=== PATIENT | female | born 1990 | race Caucasian/White ===

== ENCOUNTER 2019-05-16 06:33 | Inpatient (IN) ==
[2019-05-16] MEDS ORDERED: Famotidine 20 MG/2 ML VIAL IVP PRN (06:53)
[2019-05-16] MEDS ORDERED: *HR* Nalbuphine 10 MG/ML AMPUL IVP PRN (06:53)
[2019-05-16] MEDS ORDERED: Naloxone 0.4 MG/ML INJ IVP PRN (06:53)
[2019-05-16] MEDS ORDERED: Metoclopramide 10 MG/2 ML VIAL IVP PRN ×2 (06:53→11:23)
[2019-05-16] MEDS ORDERED: CeFAZolin Premix DUPLEX 2,000 MG/50 ML BAG IVPB ONE (06:53)
--- NOTE | 2019-05-16 06:56 | Event Note ---
Date of Encounter: 05/16/19 Time of Encounter: 06:55 Called to see patient at bedside to confirm patient head down, Ilana (Charge, RN) was unable to palpate presenting part. Did appreciate bag with no presenting part. Measuring ~6cm. She is comfortable. Consent was signed at bedside following US. MD VANESA
[2019-05-16] MEDS ORDERED: Ringers Solution, Lactated 1,000 ML IVC SCH (07:00)
[2019-05-16] MEDS ORDERED: Ringers Solution, Lactated 1,000 ML ONE ×2 (07:03→16:20)
--- NOTE | 2019-05-16 07:09 | OB/GYN History & Physical ---
Date of Encounter: 05/16/19 Time of Encounter: 07:04 Assessment and Plan (1) 40 weeks gestation of Current visit: Yes Status: Acute 28yo at 40+1wks GA who presents with concern for labor, uncomplicated otherwise. Patient presnted feeling contractions but without vaginal bleeding or leaking of fluid. Active movement. She was planning for an uncomplicated vaginal delivery, as her prior 2 were . Unfortunately while the patient was being examined, she was found to be 6cm dilated (stretched to 7cm), without a presenting part. Patient was intact. TAUS was performed by me at bedside, showing a deloris breech . Adequate fluid and movement. Consent was signed for a primary low transverse delivery. We discussed risks including but not limited to bleeding, infection, and maternal morbidity and mortality. Consent was signed with at bedside. Anesthesia was contacted and plans to have a primary CS as soon as patient labs return, which were sent down emergently. All question(s) and concerns were discussed with the patient. Dr. Holguin (on- coming OBGYN) was contacted and all information above was discussed with her in preparation of surgical delivery. MD VANESA History of Present Illness Chief complaint: Labor HPI: Ms. Davila is a 28 year old female who presents with concern for labor, this is her 3rd . Patient is UTD with care from midwives. Came in [place] she was having increased lower abdominal pressure and feelings of contraction(s). Denies n/v/d. Otherwise comfortable. Denies VB/LOF. Active movement. SVE performed at bedside, finding a vaginal exam consistent with 6-7cm with no presenting part. A TAUS was performed at the bedside showing deloris breech. The patient was consented at the bedside, and all risks were discussed. FOB at bedside. Past Med Surg Social Fam HX - Past Medical History Medical history: no medical history Psychiatric history: no psych history - Past Surgical History Surgical History: other Additional surgical history: Shoulder surgery 2006 - Social History Smoking Status: Never smoker Smokeless Tobacco Status: No Alcohol use: none Drug use: none Obstetrical History - Pregnancies : 4 Para: 2 Term: 2 : 0 Ab's: 1 Livin Medications and Allergies Vits96/Iron Fum/Folic [ Tablet] 1 each PO DAILY 05/16/19 [History] Allergy/AdvReac Type Severity Reaction Status Date / Time No Known Allergies Allergy Verified 05/16/19 06:37 Exam - Constitutional Constitutional: well developed, well nourished, no acute distress - HEENT HEENT: Normocephaly, Mucus Membranes Moist - Neck Neck exam: full ROM - Lungs Respiratory exam: CTAB - Cardiovascular Cardiovascular exam: RRR - Breasts Breast: bilateral: normal - Abdomen Abdomen: Present: bowel sounds normal - Cervix Dilation: 6 - Uterus Uterus exam: Present: normal size, normal contour - Anus/Rectum Anus/Rectum: Present: normal perianal skin, heme negative Results All other labs normal.
[2019-05-16] MEDS ORDERED: *HR* Morphine Sulfate/PF 10 MG/10 ML AMPUL ONE (07:13)
[2019-05-16] MEDS ORDERED: *HR* Oxytocin 10 UNIT/ML VIAL IM ONE (07:13)
[2019-05-16] MEDS ORDERED: *HR* FentaNYL (PF) 100 MCG/2 ML VIAL ONE (07:13)
[2019-05-16 07:25] LABS: Basophils % 0.2 %; Eosinophils # 0.1 K/mcL (0.0-0.6); Eosinophils % 1.1 %; Hematocrit 38.8 % (35.3-44.9); Hemoglobin 13.1 g/dL (11.5-15.4); Immature Granulocytes % 0.6 % (0-4); Lymphocytes # 2.3 K/mcL (0.6-4.6); Lymphocytes % 22.2 %; Mean Corpuscular HGB Conc 33.8 g/dL (31.6-35.5); Mean Corpuscular Hemoglobin 31.2 pg (28.0-33.3); Mean Corpuscular Volume 92.4 fL (83.0-100.0); Mean Platelet Volume 12.3 fL (9.4-12.4); Monocytes # 0.5 K/mcL (0.0-1.3); Monocytes % 5.1 %; Neutrophils # 7.3 K/mcL (1.6-8.9); Platelet Count 168 K/mcL (140-400); Red Cell Distribution Width 14.7 % (11.5-14.5); Segmented Neutrophils % 70.8 %; White Blood Count 10.3 K/mcL (4.3-11.1)
[2019-05-16] MEDS ORDERED: Ondansetron 4 MG/2 ML VIAL IVP PRN ×2 (07:51→11:23)
[2019-05-16] MEDS ORDERED: *HR* Meperidine 25 MG/ML SYRINGE IVP PRN (07:51)
[2019-05-16] MEDS ORDERED: Acetaminophen IV 1,000 MG/100 ML INFUS..BTL IVPB ONE (07:51)
[2019-05-16] MEDS ORDERED: *HR* HYDROmorphone (PF) 1 MG/ML SYRINGE IVP PRN (07:51)
--- NOTE | 2019-05-16 07:51 | Anesthesia Evaluation PreOp ---
Date of Encounter: 05/16/19 Time of Encounter: 07:48 - Past History Planned Operation: c section Cardiac History: Denies any Significant Hx Pulmonary History: Denies Any Significant HX AIRCRAFT ASSEMBLER History: Denies Any Significant HX Other Medical History: GERD Anesthesia History: No Prior Anesthetic Complications, Past Anesthesia (shoulder, PRATEEK x 2) : Yes Test: Positive Alcohol Use: none Drug use: none Medications and Allergies Vits96/Iron Fum/Folic [ Tablet] 1 each PO DAILY 05/16/19 [History] Allergy/AdvReac Type Severity Reaction Status Date / Time No Known Allergies Allergy Verified 05/16/19 06:37 - Meds/Allergy Pre-op Review Medications Reviewed: Yes Allergies Reviewed: Yes Beta Blockers on Current Med List: No Anesthesia Results - Labs 05/16/19 06:55 Anesthesia Exam Height: 5'5" Weight: 184 NPO (# of Hours): 12 Pain Scale: 5 Pain Scale Used: Numeric (1 - 10) - HEENT Pupil (Motor): Pupils equal Mallampati: II Teeth: Normal Oral Opening: Greater than 3 - AIRCRAFT ASSEMBLER LOC: Oriented AIRCRAFT ASSEMBLER Motor: Normal RUE, Normal LUE, Normal RLE, Normal LLE, Normal Face AIRCRAFT ASSEM[employer]ER Sensory: Normal: RUE, LUE, RLE, LLE, Face - Cardiac Rhythm: Regular Murmur: None - Pulmonary Breath Sounds: bilateral Clear Respiratory Effort: Symmetrical Anesthesia Assess/Plan ASA Score: 2 Level of consciousness: Cooperative Anesthetic Plan: Spinal (risks discussed, questions answered, consented) Autologous Blood: No Monitoring Plan: Standard Monitors Recovery Plan: PACU
[2019-05-16 08:31] LABS: Amphetamine Screen,Urine Negative ng/mL (Cutoff=1000); Barbiturate Screen,Urine Negative ng/mL (Cutoff=200); Benzodiazepines Screen,Urine Negative ng/mL (Cutoff=200); Cannabinoid Screen,Urine Negative ng/mL (Cutoff = 50); Cocaine Screen,Urine Negative ng/mL (Cutoff= 300); Opiate Screen,Urine Negative ng/mL (Cutoff=300); Phencyclidine Screen,Urine Negative ng/mL (Cutoff=25)
--- NOTE | 2019-05-16 08:37 | Anesthesia Procedures ---
Date of Encounter: 05/16/19 Time of Encounter: 08:35 Procedures: Anesthesia - Epidural/Spinal Patient ID/Chart reviewed: Yes Patient examined: Yes OB Eval: Gestational age: 40 OB Eval: : 3 OB Eval: Hx Para: 2 OB Eval: Dilated at (cm): 6 OB Eval: Contractions: Non-stressed pattern Consent Obtained: Yes Supplemental Oxygen: None/Room Air Supplemental Oxygen Rate (L/min): 3 Site Prep: Aseptic Technique, Sterile prep and drape, 0.5% Chlorhexidine/Alcohol Patient position: upright Local Anesthetic: Lidocaine 1% (3) Amount of Local Anesthetic used: 3 Interspace Used: L2-L3 Loss of Resistance (MARK): No Blood: No CSF: Yes (clear 4 quads) Paresthesia: No Spinal Needle Gauge: 25 Spinal Dose: Marcaine 12mg, duramorph 0.25 mg, fentanyl 10mcg Procedure: aseptic, rigoberto well, VSS, effective Vitals + FHT's: 125/65 76 16 fht 132
--- NOTE | 2019-05-16 09:19 | OB/GYN Procedure Note ---
Section - Date of procedure: 05/16/19 Preop diagnosis: breech Post-op diagnosis: same Procedure: section, primary low transverse Surgeon: Misty Forrest Blood Loss: 400 Was there an computer assistant present: Yes Whizzer: Cassidy Munoz Mortar Mixer: Thomas Smith Anesthesia Type: Spinal section complications: none Disposition: L&D Recovery Room Specimens: Cord blood - Infant (s) Infant A Delivery Date: 05/16/19 Delivery Time: 09:18 Presentation: complete breech Route of delivery: breech extraction (via ) Gender: Female Viability: Viable Pounds: 7 Ounces: 1 Gram Weight: 3.215 kg at 1 minute: 7 at 5 minutes: 9 Shoulder Dystocia: not encountered Specimens collected: cord blood Placenta: spontaneous Cord: nuchal cord, 3 umbilical vessels - Narrative Narrative: Patient was taken to the operative suite and placed under spinal anesthetic. She was then prepped and draped in normal sterile fashion in the dorsal supine position. Timeout was then performed. Antibiotics were given at room time. SCDs are on and active. Pfannenstiel skin incision is then made and carried through to underlying layer of fascia with the Bovie. The fascia was then incised in the midline and incision extended laterally with the Nolasco scissors. The fascia was tented up and dissected off the rectus muscles sharply. The rectus muscles were in the midline and the peritoneum was tented up and entered sharply with the Metzenbaum scissors. The peritoneal incision was then extended bluntly. The bladder blade was then inserted and the vesicouterine peritoneum was entered sharply. Bladder flap was created digitally. A low transverse uterine incision was then made. The breech was brought to the incision and the infant was delivered using breech maneuvers. There was a nuchal cord that was reduced at delivery. Cord was clamped and cut. was handed to waiting nursery staff. Placenta delivered spontaneously complete and intact with a three-vessel cord. The uterus was cleared of all clots and debris using moist laparotomy sponge. The uterine incision was then closed using 0 Vicryl in a running locked fashion. A second layer of the same suture was used to imbricate the incision. Multiple figure of eight sutures were used in the midline to ensure hemostasis. The abdomen was then cleared of all clots and debris using copious irrigation. The fascial incision was then closed using 0 Vicryl in a running fashion. The skin was closed using 4-0 Vicryl in a subcuticular fashion. Steri-Strips and sterile dressing are then placed. Mother and taken to recovery in stable condition.
--- NOTE | 2019-05-16 11:00 | Anesthesia Evaluation Post Op ---
Date of Encounter: 05/16/19 Time of Encounter: 10:58 - Lungs Lungs: Clear Ascult./Percussion - Airway Airway: Non-obstructed - Cardiovascular Regular Rate - Mental Status Mental Status: Alert & Oriented, Answers Appropriately - Pain Pain Scale: 1 (slight itching) Pain Scale used: Numeric (1 - 10) - Nausea Vomiting Nausea Vomiting: Not Present - Hydration Hydration: NPO, Carlos catheter - Discharge PostOp Status: Transfer Patient to floor (fully awake, VSS, no anesthetic complications)
[2019-05-16] MEDS ORDERED: Rho Immune Globulin 1,500 UNIT SYRINGE IM ONE (11:23)
[2019-05-16] MEDS ORDERED: *HR* OxyCODONE Immed Rel 5 MG TABLET PO PRN (11:23)
[2019-05-16] MEDS ORDERED: *HR* OxyCODONE/APAP 5/325 TABLET PO PRN (11:23)
[2019-05-16] MEDS ORDERED: Acetaminophen 325 MG TABLET PO PRN (11:23)
[2019-05-16] MEDS ORDERED: Sennosides 8.6 MG TABLET PO PRN (11:23)
[2019-05-16] MEDS ORDERED: Simethicone 80 MG TAB.CHEW PO PRN (11:23)
[2019-05-16] MEDS ORDERED: Oxytocin 20 units/ LR 1000 mL 20 UNIT/1,000 ML BAG IVC SCH ×2 (11:23)
--- NOTE | 2019-05-17 09:24 | OB/GYN Progress Note ---
Date of Encounter: 05/17/19 Time of Encounter: 09:20 - Assessment and Plan (1) delivery indicated due to breech presentation Current Visit: Yes Status: Acute Patient meeting postop day 1 milestones. Await passage of flatus. Anticipate discharge home postop day 2. (2) () Current Visit: Yes Status: Acute Subjective - Subjective Patient reports: appetite normal (reports not passing gas yet), voiding normally, pain well controlled, ambulating normally : nursing well Objective - Vital Signs Latest vital signs: Vital Signs Temp Pulse Resp BP Pulse Ox 05/17/19 08:39 98.1 F 86 16 113/76 98 05/17/19 04:05 98.2 F 85 18 112/74 99 05/17/19 00:30 99.1 F 72 16 111/72 99 05/16/19 20:25 98.1 F 70 15 125/80 100 05/16/19 14:19 98.4 F 72 18 121/62 96 05/16/19 13:35 97.6 F 73 16 119/76 96 05/16/19 12:30 97.8 F 72 18 120/73 95 05/16/19 12:03 97.9 F 86 14 116/72 98 05/16/19 11:30 98.4 F 88 12 116/71 96 Intake and Output 05/16/19 05/17/19 05/17/19 23:59 07:59 15:59 Intake Total 1200 / 1200 Output Total 1003 / 1603 2200 / 2200 Balance -1003 / -1503 -1000 / -1000 Intake: Oral 1200 / 1200 Output: Urine 500 / 500 Emesis 3 / 3 Catheter 1000 / 1600 1700 / 1700 Other: Weight 78.925 kg Patient Weight 05/17/19 23:59 Weight 78.925 kg - Exam Lungs: bilateral: normal Chest: Normal S1, Normal S2 Extremities: Present: normal Abdomen: Present: soft (BS x 2 UQ's), gravid Incision: Present: dry, intact Uterus: Present: firm Fundal Height: 1 (U/1) - Labs Labs: Laboratory Results - last 24 hr 05/16/19 09:25 Baby's Blood Type O RH NEGATIVE Mother's Blood Type O RH NEGATIVE Rhogam Indicated NO
[2019-05-17 09:33] LABS: Basophils % 0.2 %; Eosinophils # 0.1 K/mcL (0.0-0.6); Eosinophils % 0.9 %; Hematocrit 36.8 % (35.3-44.9); Hemoglobin 11.9 g/dL (11.5-15.4); Immature Granulocytes % 0.4 % (0-4); Lymphocytes # 1.6 K/mcL (0.6-4.6); Lymphocytes % 13.7 %; Mean Corpuscular HGB Conc 32.3 g/dL (31.6-35.5); Mean Corpuscular Hemoglobin 30.9 pg (28.0-33.3); Mean Corpuscular Volume 95.6 fL (83.0-100.0); Mean Platelet Volume 11.7 fL (9.4-12.4); Monocytes # 0.5 K/mcL (0.0-1.3); Monocytes % 4.4 %; Neutrophils # 9.1 K/mcL (1.6-8.9); Platelet Count 154 K/mcL (140-400); Red Blood Count 3.85 M/mcL (3.82-4.97); Segmented Neutrophils % 80.4 %; White Blood Count 11.3 K/mcL (4.3-11.1)
[2019-05-17] MEDS: Ibuprofen 600 MG TABLET PO PRN ×2 (11:08→19:46)
[2019-05-17] MEDS: Prenatal Vit/FA 1 EACH TABLET PO SCH (11:12)
[2019-05-18] MEDS: Ibuprofen 600 MG TABLET PO PRN (05:45)
[2019-05-18 08:15] VITALS: BP 122/87
[2019-05-18] MEDS: Prenatal Vit/FA 1 EACH TABLET PO SCH (08:55)
--- NOTE | 2019-05-18 09:34 | Discharge Summary ---
Date of Encounter: 05/18/19 Time of Encounter: 09:39 - Discharge Diagnosis (1) S/P section Priority: Primary Status: Acute Comments: 28 y/o F POD 2 s/p primary C/S for breech presentation reports recovering well . She is able to tolerate regular diet with flatus but denied BM as of yet. Denies dysuria. Reports minimal vaginal bleeding and wound site clean. Breast feeding going weel . No new complaints. Vitals reviewed. No events overnight. (2) Breast feeding status of mother Priority: Secondary Status: Acute Comments: Breast feeding going well but need breast pump at home - support as needed (3) Positive GBS test Priority: Secondary Status: Acute Comments: GBS positive treated with PCN x2 in delivery (4) Leukocytosis Priority: Secondary Status: Acute Comments: Mild leukocytosis at WBC 11.3 with out fever or concerning symptoms thus etiology likely reactive Qualifiers: Leukocytosis type: unspecified Qualified Code(s): D72.829 - Elevated white blood cell count, unspecified - Discharge Medications Prescriptions: New Docusate [Colace] 100 mg PO BID #60 capsule Ibuprofen [Motrin] 600 mg PO Q6HR #60 tablet OxyCODONE/APAP 5/325 [Percocet 5/325 MG] 1 each PO Q4HR PRN 3 Days #14 tablet PRN Reason: Moderate pain 4-6 Breast Pump [BREAST PUMP] 1 each .ROUTE AD #1 each Continued Vits96/Iron Fum/Folic [ Tablet] 1 each PO DAILY Home Medications: Vits96/Iron Fum/Folic [ Tablet] 1 each PO DAILY 05/16/19 [History] Breast Pump [BREAST PUMP] 1 each .ROUTE AD #1 each 05/18/19 [Rx] Docusate [Colace] 100 mg PO BID #60 capsule 05/18/19 [Rx] Ibuprofen [Motrin] 600 mg PO Q6HR #60 tablet 05/18/19 [Rx] OxyCODONE/APAP 5/325 [Percocet 5/325 MG] 1 each PO Q4HR PRN 3 Days #14 tablet 05/18/19 [Rx] Allergies/Adverse Reactions: Allergy/AdvReac Type Severity Reaction Status Date / Time No Known Allergies Allergy Verified 05/16/19 06:37 Data Procedures and tests throughout hospitalization: Laboratory Tests 06/05/16/19 05/16/19 06:53 06:55 09:25 WBC 10.3 RBC 4.20 Hgb 13.1 Hct 38.8 MCV 92.4 MCH 31.2 MCHC 33.8 RDW 14.7 H Plt Count 168 MPV 12.3 Immature Gran % 0.6 Seg Neutrophils % 70.8 Lymphocytes % 22.2 Monocytes % 5.1 Eosinophils % 1.1 Basophils % 0.2 Neutrophils # 7.3 Lymphocytes # 2.3 Monocytes # 0.5 Eosinophils # 0.1 Basophils # 0.0 Urine Opiates Screen Negative Ur Barbiturates Screen Negative Ur Phencyclidine Scrn Negative Ur Amphetamines Screen Negative U Benzodiazepines Scrn Negative Urine Cocaine Screen Negative U Marijuana (THC) Screen Negative Ur Drug Screen Interp See Below Baby's Blood Type O RH NEGATIVE Mother's Blood Type O RH NEGATIVE Rhogam Indicated NO 05/17/19 09:05 WBC 11.3 H RBC 3.85 Hgb 11.9 Hct 36.8 MCV 95.6 MCH 30.9 MCHC 32.3 RDW 15.0 H Plt Count 154 MPV 11.7 Immature Gran % 0.4 Seg Neutrophils % 80.4 Lymphocytes % 13.7 Monocytes % 4.4 Eosinophils % 0.9 Basophils % 0.2 Neutrophils # 9.1 H Lymphocytes # 1.6 Monocytes # 0.5 Eosinophils # 0.1 Basophils # 0.0 Urine Opiates Screen Ur Barbiturates Screen Ur Phencyclidine Scrn Ur Amphetamines Screen U Benzodiazepines Scrn Urine Cocaine Screen U Marijuana (THC) Screen Ur Drug Screen Interp Baby's Blood Type Mother's Blood Type Rhogam Indicated Labs on day of discharge: Labs from last 24 hours 05/17/19 09:05 WBC 11.3 H RBC 3.85 Hgb 11.9 Hct 36.8 MCV 95.6 MCH 30.9 MCHC 32.3 RDW 15.0 H Plt Count 154 MPV 11.7 Immature Gran % 0.4 Seg Neutrophils % 80.4 Lymphocytes % 13.7 Monocytes % 4.4 Eosinophils % 0.9 Basophils % 0.2 Neutrophils # 9.1 H Lymphocytes # 1.6 Monocytes # 0.5 Eosinophils # 0.1 Basophils # 0.0 Date of admission: 05/16/19 06:33 Primary care physician: PCP NONE Discharging clinician: Sissy M Ramana Anticipated date of discharge: 05/18/19 - Patient Status Disposition: Home, Self-Care Condition: Good Functional capacity at discharge: independent ambulation Overall status at discharge: patient is progressing back to baseline - Discharge Instructions Follow Up With: NONE,PCP [Primary Care Provider] - Misty Holguin DO [Partnered Physician] - - Diet and Activity Activity: increase activity as tolerated Diet: advance to your usual diet Hospital Course Reason for admission: active labor (breech presentation) Delivery: section Episiotomy: none Laceration: none Other procedures: none complications: none Discharge diagnosis: IUP at term delivered [place] baby: female Hospital course: Addendum entered and electronically signed by Misty Holguin DO 05/16/19 10:36: Delivery time was entered in error in above note. The actual time was 0828 on 05/16/2019 Original Note: Section - Date of procedure: 05/16/19 Preop diagnosis: breech Post-op diagnosis: same Procedure: section, primary low transverse Surgeon: Misty Holguin Quantitated Blood Loss: 400 Was there an engineer first assistant present: Yes Materials Analyst: Cassidy Munoz Blister Rust Eradicator: Thomas Smith Anesthesia Type: Spinal section complications: none Disposition: L&D Recovery Room Specimens: Cord blood - (s) Infant A Infant Delivery Date: 05/16/19 Infant Delivery Time: 09:18 Presentation: complete breech Route of delivery: breech extraction (via ) Gender: Female Viability: Viable Pounds: 7 Ounces: 1 Gram Weight: 3.215 kg at 1 minute: 7 at 5 minutes: 9 Shoulder Dystocia: not encountered Specimens collected: cord blood Placenta: spontaneous Cord: nuchal cord, 3 umbilical vessels - Narrative Narrative: Patient was taken to the operative suite and placed under spinal anesthetic. She was then prepped and draped in normal sterile fashion in the dorsal supine position. Timeout was then performed. Antibiotics were given at room time. SCDs are on and active. Pfannenstiel skin incision is then made and carried through to underlying layer of fascia with the Bovie. The fascia was then incised in the midline and incision extended laterally with the Nolasco scissors. The fascia was tented up and dissected off the rectus muscles sharply. The rectus muscles were in the midline and the peritoneum was tented up and entered sharply with the Metzenbaum scissors. The peritoneal incision was then extended bluntly. The bladder blade was then inserted and the vesicouterine peritoneum was entered sharply. Bladder flap was created digitally. A low transverse uterine incision was then made. The infant breech was brought to the incision and the was delivered using breech maneuvers. There was a nuchal cord that was reduced at delivery. Cord was clamped and cut. Infant was handed to waiting nursery staff. Placenta delivered spontaneously complete and intact with a three-vessel cord. The uterus was cleared of all clots and debris using moist laparotomy sponge. The uterine incision was then closed using 0 Vicryl in a running locked fashion. A second layer of the same suture was used to imbricate the incision. Multiple figure of eight sutures were used in the midline to ensure hemostasis. The abdomen was then cleared of all clots and debris using copious irrigation. The fascial incision was then closed using 0 Vicryl in a running fashion. The skin was closed using 4-0 Vicryl in a subcuticular fashion. Steri-Strips and sterile dressing are then placed. Mother and taken to recovery in stable condition. Time Attestation: Total time spent providing and/or coordinating discharge services: Time Spent: Less than 30 minutes - VTE Documentation of Mechanical Device: Intermittent pneumatic compression device - Attending Attestation I examined this patient and my medical decision-making was reviewed with the Resident Physician. I agree with the documented findings, disposition and treatment plan as described. Can Boggs CNM Exam - Constitutional Vitals: Temp Pulse Resp BP Pulse Ox 98.2 F 76 16 122/87 97 05/18/19 08:12 05/18/19 08:12 05/18/19 08:12 05/18/19 08:12 05/18/19 08:12 General appearance IM: cooperative, A&O X 3, pleasant, no acute distress, answers questions appropriately - Respiratory Respiratory exam: Present: CTAB. Absent: chest wall tenderness, wheezes - Cardiovascular Cardiovascular exam IM: Present: RRR. Absent: diastolic murmur - GI/Abdominal GI/Abdominal exam IM: normal bowel sounds Incision: normal (steri strips in place), dry, dressed - Rectal Rectal exam: deferred - Uterine Tone: Firm Uterus Position: 1 Finger Below Umbilicus - Neurological Exam Neurological exam: altered, normal gait, oriented X3, no focal deficits
== END 2019-05-18 11:00 | disposition home or self-care (01) | DRG 788 ==
LOC: 1NENULAB → 1NENUOBS 11:23
PROVIDERS: ADMIT Advanced Practice Midwife; ATTEND Advanced Practice Midwife